=== PATIENT | male | born 1995 | race Caucasian/White ===

== ENCOUNTER 2025-08-11 16:44 | Emergency (ER) | payer BC, SELFPAY ==
[2025-08-11 16:44] VITALS: BP 150/107; PULSE 107; RESP 22; TEMP 36.9; O2SAT 97; BMI 41.6
--- NOTE | 2025-08-11 17:11 | RAD_ITS ---
PROCEDURE: CHEST PA AND LATERAL 08/11/2025 REASON FOR EXAM: COUGH TECHNIQUE: Procedure Code: RADCXR Modality: DX Procedure: CHEST PA AND LATERAL COMPARISON: None. FINDINGS: Lungs/Pleura: Clear. Heart/Mediastinum: Normal in size. Bones/Soft tissues: Unremarkable. RAD/Chest PA and Lateral IMPRESSION: No acute pulmonary disease. Reading Location: [id number]
--- NOTE | 2025-08-11 17:13 | ED.VIS.DYS ---
HPI History of Present Illness Chief Complaint: Cough Narrative Narrative: Chief complaint and HPI: 30-year-old male with past medical history of asthma but not on a daily medication presents for evaluation of cough. Patient states for the past week he has had a cough and congestion. States he saw a physician in which he was placed on a prednisone taper on Saturday and started a Z-Frederick yesterday. He states his cough has continued which is why he presents to the emergency department. He has been using breathing treatments at home. He denies any fever, chills, chest pain. Review of systems: See HPI Medications: As listed on the chart Allergies: As listed on the chart PFSH: Per chart Vital signs: As listed on the chart. Reviewed. Physical exam: Gen: A&O x3, NAD Head: Normocephalic, atraumatic Eyes: No sclera icterus, conjunctiva clear ENT: Moist mucous membranes Neck: Trachea midline, full range of motion CV: RRR, no murmurs Resp: Lungs CTA BL, no w/r/c, + productive cough Musc: Full ROM, no deformity Skin: Warm, dry Psych: Cooperative, appropriate mood and affect [facility] Medical History (Updated 08/11/25 @ 18:[address] Renard Lafleur, DO) Asthma Home Medications ?Medication ?Instructions ?Recorded ?Last Taken ?Type albuterol sulfate 2.5 mg/3 mL 2.5 mg (3 mL) inhalation Q4H PRN 08/11/25 Unknown Rx (0.083 %) solution for nebulization #25 vials prednisone 20 mg tablet 40 mg (2 x 20 mg) PO DAILY 5 days 08/11/25 Unknown Rx #10 tabs Allergy/AdvReac Type Severity Reaction Status Date / Time No Known Allergies Allergy Verified 08/11/25 16:45 Family History no significant family his Social History Smoking Status: Never smoker EXAM Physical Exam Const Vital Signs: 08/11/25 16:44 08/11/25 16:57 08/11/25 17:20 Temperature 98.4 F Temperature Source Oral Pulse Rate 107 H 96 Respiratory Rate 22 H 16 Respiratory Effort Normal Non-Labored Respiratory Depth Normal Respiratory Pattern Normal Normal Blood Pressure 150/107 H Blood Pressure Mean 121 Pulse Ox 97 Oxygen Delivery Method Room Air Room Air MDM MDM MDM Narrative Medical decision making narrative: 30-year-old male with past medical history of asthma but not on a daily medication presents for evaluation of cough. Patient states for the past week he has had a cough and congestion. States he saw a physician in which he was placed on a prednisone taper on Saturday and started a Z-[place]erick yesterday. He states his cough has continued which is why he presents to the emergency department. He has been using breathing treatments at home. On presentation, patient no acute distress. His lungs are clear to auscultation bilaterally without any wheezing. He does have a productive cough. Differential diagnosis includes but is not limited to viral illness, bronchitis, pneumonia, asthma exacerbation. He already took 35 mg of prednisone today therefore no prednisone will be prescribed. He just started his Z-[place]erick. Will give albuterol and DuoNeb for symptom control. Offered COVID, flu, RSV testing but declined. Will obtain chest x-ray to assess for pneumonia. X-ray of the chest was personally viewed interpreted by me, ED physician. No pneumonia, effusion, cardiomegaly, pneumothorax. Radiology in agreement. I suspect patient's symptoms are secondary to viral illness. On reevaluation, patient's symptomatic shortness of breath has improved. He feels that maybe his albuterol nebulizers are old and therefore is asking for refill. This will be prescribed. He feels that his 35 mg taper is not a high enough dose and is requesting a steroid adjustment. Therefore I told him to stop taking his current taper and instead we will write him for prednisone 40 mg x 5 days. Follow-up with his primary care physician. [id number] medications for symptom control. Mucinex for cough. Return precautions explained. He confirmed understand the plan. Patient discharged home. Impression: 1. Mild asthma exacerbation 2. Viral syndrome Radiography Diagnostic Testing: Clinical Impression(s) from Imaging Studies Chest X-Ray 08/11/25 17:11 IMPRESSION: No acute pulmonary disease. Reading Location: [id number] Discharge Plan Triage Chief Complaint: Cough ED Provider: Renard Lafleur Dx/Rx/DC Orders Clinical Impression: Asthma flare, Viral syndrome Prescriptions: New prednisone 20 mg tablet 40 mg PO DAILY 5 Days Qty: 10 0RF albuterol sulfate 2.5 mg /3 mL (0.083 %) solution for nebulization 2.5 mg inhalation Q4H PRN Qty: 25 0RF Rx Instructions: Use q4 hours and PRN for wheezing Primary Care Provider: Care Physician,No Primary Referrals: Follow-up with your primary care physician [Other] - 3-5 Days Ananth Huggins MD [Med Staff - Active Staff, Family Practice] - 3-5 Days Activity Restrictions/Additional Instructions: Follow-up with your primary care physician. If you do not have one follow-up with the one listed above. Stop taking your current prednisone taper and instead take the new prednisone dose that I prescribed you. Continue your albuterol inhaler as needed. Will send albuterol nebulizers that you feel that you are ordered. Return back to ED if symptoms change or worsen. Print Language: [place]ij[place] Disposition Disposition: Home, Self Care
[2025-08-11] MEDS: Albuterol 2.5 MG/3 ML VIAL.NEB. INHALATION (17:18)
[2025-08-11 17:20] VITALS: PULSE 96; RESP 16
[2025-08-11 18:35] VITALS: BP 152/94; PULSE 109; RESP 17; TEMP 36.9; O2SAT 95
== END 2025-08-11 18:38 | disposition home or self-care (01) ==
PROVIDERS: Emergency Provider Surgery; Visit Provider Surgery
DX: J45.901 Unspecified asthma with (acute) exacerbation (principal); B34.9 Viral infection, unspecified
CPT/HCPCS: 71046; 94640; 99283